=== PATIENT | female | born 1930 | race Caucasian/White ===

== ENCOUNTER 2017-11-08 10:18 | Emergency (ER) | payer OTHER, BC ==
--- NOTE | 2017-11-08 10:31 | PDOC ---
History of Present Illness - General History Source: Patient Exam Limitations: No Limitations - History of Present Illness Initial Comments: 11/08/17 11:53 The patient is a 87 year old female, with a significant past medical history of anemia and hypercholesterolemia , who presents to the emergency department with swelling to her lips and right eye since this morning. The patient reports having intermittent right upper jaw pain for about 3 days. She reports yesterday going to her dentist, having a negative work up with negative x-rays. This morning she reports waking up with a small [place] of blood on her pillow, which she believes came from her mouth. She notes recently starting a new sleeping pill, belsomra, 5-6 days prior to the swelling in her mouth/eye. She denies recent fevers, chills, rash, headache or dizziness. She denies recent nausea, vomit, diarrhea or constipation. She denies recent dysuria, frequency, urgency or hematuria. She denies recent chest pain or shortness of breath. No other new exposures or medications. Allergies: NKA Past surgical history: None reported. Social history: Nonsmoker. Denies EtOH use and recreational drug use. <Darrius Shepherd - Last Filed: 11/08/17 11:53> <Jhony Peña - Last Filed: 11/08/17 15:52> - General Chief Complaint: Allergic Reaction Stated Complaint: FACE/EYE INJURY Time Seen by Provider: 11/08/17 10:31 Past History <Darrius Shepherd - Last Filed: 11/08/17 11:53> - Past Medical History Anemia: Yes COPD: No Hypercholesterolemia: Yes Other medical history: parkinsons,monoclonal gammopathy of unknown significance - Suicide/Smoking/Psychosocial Hx Smoking History: Never smoked <Jhony Peña - Last Filed: 11/08/17 15:52> - Past Medical History Allergies/Adverse Reactions: Allergies Allergy/AdvReac Type Severity Reaction Status Date / Time No Known Allergies Allergy Verified 11/08/17 10:23 Home Medications: Ambulatory Orders Citracal + D ER Tablet 1 tab PO DAILY 11/08/17 Donepezil HCl [Aricept] 5 mg PO 11/08/17 Escitalopram Oxalate [Lexapro -] 5 mg PO DAILY 11/08/17 Pravastatin Sodium [Pravachol (Nf)] 40 mg PO HS 11/08/17 Rasagiline Mesylate [Azilect] 1 mg PO DAILY 11/08/17 Solifenacin Succinate [Vesicare -] 5 mg PO DAILY 11/08/17 Suvorexant [Belsomra] 15 mg PO 11/08/17 Review of Systems - Review of Systems Able to Perform ROS?: Yes Comments:: 11/08/17 11:53 GENERAL/CONSTITUTIONAL: No fever or chills. No weakness. HEAD, EYES, EARS, NOSE AND THROAT: +swelling lips/R eye.+ right jaw pain. No change in vision. No ear pain or discharge. No sore throat. GASTROINTESTINAL: No nausea, vomiting, diarrhea or constipation. GENITOURINARY: No dysuria, frequency, or change in urination. CARDIOVASCULAR: No chest pain or shortness of breath. RESPIRATORY: No cough, wheezing, or hemoptysis. MUSCULOSKELETAL: No joint or muscle swelling or pain. No neck or back pain. SKIN: No rash NEUROLOGIC: No headache, vertigo, loss of consciousness, or change in strength/ sensation. ENDOCRINE: No increased thirst. No abnormal weight change. HEMATOLOGIC/LYMPHATIC: No anemia, easy bleeding, or history of blood clots. ALLERGIC/IMMUNOLOGIC: No hives or skin allergy. Is the patient limited [place] proficient: Yes <Darrius Shepherd - Last Filed: 11/08/17 11:53> *Physical Exam - Vital Signs Last Vital Signs Temp Pulse Resp BP Pulse Ox 98.1 F 76 18 153/60 99 11/08/17 10:20 11/08/17 10:20 11/08/17 10:20 11/08/17 10:20 11/08/17 10:20 - Physical Exam Comments: 11/08/17 11:54 GENERAL: Awake, alert, and fully oriented, in no acute distress HEAD: No signs of trauma EYES: PERRLA, EOMI, no chemosis or proptosis, sclera anicteric, conjunctiva clear. Right inferior orbital erythema and edema. ENT: Upper lip edema. No evidence of abscess or focal tenderness intraorally. Tongue normal size, uvula midline. nares patent, oropharynx clear without exudates. Moist mucosa NECK: Normal ROM, supple, no lymphadenopathy, JVD, or masses LUNGS: Breath sounds equal, clear to auscultation bilaterally. No wheezes, and no crackles HEART: Regular rate and rhythm, normal S1 and S2, no murmurs, rubs or gallops ABDOMEN: Soft, nontender, normoactive bowel sounds. No guarding, no rebound. No masses EXTREMITIES: Normal range of motion, no edema. No clubbing or cyanosis. No cords , erythema, or tenderness BACK: No midline spinal tenderness in cervical/thoracic/lumbar region NEUROLOGICAL: Normal speech, cranial nerves intact, normal tone <Darrius Shepherd - Last Filed: 11/08/17 11:53> - Vital Signs Last Vital Signs Temp Pulse Resp BP Pulse Ox 98.1 F 76 18 153/60 99 11/08/17 10:20 11/08/17 10:20 11/08/17 10:20 11/08/17 10:20 11/08/17 10:20 <Jhony Peña - Last Filed: 11/08/17 15:52> ED Treatment Course - LABORATORY CBC & Chemistry Diagram: 11/08/17 11:20 11/08/17 11:20 - ADDITIONAL ORDERS Additional order review: 11/08/17 11:20 RBC 3.87 MCV 86.7 MCHC 31.5 L RDW 15.8 H MPV 10.1 D Neutrophils % 73.2 D Lymphocytes % 15.7 D Monocytes % 9.1 Eosinophils % 1.2 Basophils % 0.8 - Medications Given in the ED: ED Medications Discontinued Medications Generic Name Dose Route Start Last Admin Trade Name Juanq PRN Reason Stop Dose Admin Diphenhydramine HCl 25 mg 11/08/17 11:03 11/08/17 11:49 Benadryl Injection - IVPUSH 11/08/17 11:04 25 mg ONCE ONE Administration Famotidine/Sodium Chloride 20 mg in 50 mls @ 100 mls/hr 11/08/17 11:04 11:49 Pepcid 20 Mg Premixed Ivpb - IVPB 11/08/17 11:33 100 mls/hr ONCE ONE Administration Methylprednisolone Sodium Succinate 125 mg 11/08/17 11:03 11/08/17 11:49 Solu-Medrol - IVPUSH 11/08/17 11:04 125 mg ONCE ONE Administration <Darrius Shepherd - Last Filed: 11/08/17 11:53> - LABORATORY CBC & Chemistry Diagram: 11/08/17 11:20 11/08/17 11:20 <Jhony Peña - Last Filed: 11/08/17 15:52> Medical Decision Making - Medical Decision Making 11/08/17 11:09 87-year-old female presents emergency Department with upper lip swelling and inferior orbital swelling on the right. Vitals unremarkable. Patient started a new sleeping medication Balsamra 5 days ago. Differential includes but not limited to ALLERGIC reaction versus collection although unlikely this patient has no fevers and no evidence of abscess or collection on exam versus preseptal cellulitis. We'll obtain labs and facial CT scan. We'll also treat as an ALLERGY with Benadryl, steroids, and Pepcid and reassess. 11/08/17 15:[address] scan of the face with only edema of the face but no collections. After steroids, Benadryl and Pepcid there is significant improvement in the swelling consistent with possible ALLERGIC reaction to Balsomra. Patient feels much better. Advised to stop taking bowel balsomra and also explained that I will prescribe her an EpiPen should she have severe ALLERGIC symptoms such as shortness of breath and vomiting and throat closing. Patient/daughter express understanding. I discussed the physical exam findings, ancillary test results and final diagnoses with the patient. I answered all of the patient's questions. The patient was satisfied with the care received and felt comfortable with the discharge plan and treatment plan. The patient will call their primary care physician within 24 hours to arrange follow-up and will return to the Emergency Department with any new, persistent or worsening symptoms. <Jhony Peña - Last Filed: 11/08/17 15:52> *DC/Admit/Observation/Transfer - Attestations Scribe Attestion: 11/08/17 11:54 Documentation prepared by Darrius Shepherd, acting as medical device for Jhony Peña MD, /DO. <Darrius Shepherd - Last Filed: 11/08/17 11:53> - Discharge Dispostion Admit: No - Attestations Physician Attestion: 11/08/17 15:52 I, Dr. Jhony Peña MD, attest that this document has been prepared under my direction and personally reviewed by me in its entirety. I further attest, that it accurately reflects all work, treatment, procedures and medical decision -making performed by me. <Jhony Peña - Last Filed: 11/08/17 15:52> Diagnosis at time of Disposition: Allergic reaction - Discharge Dispostion Disposition: HOME Condition at time of disposition: Stable - Referrals Referrals: Stevo Mitchell MD [Primary Care Provider] - - Patient Instructions Printed Discharge Instructions: DI for Adverse Drug Reaction -- Allergic Additional Instructions: Do not take Belsomra as you may be allergic to it. Take the steroids (prednisone ) as prescribed. Use Benadryl as needed for mild ALLERGIC symptoms. Please fill the prescription for the EpiPen and use as we discussed if you have severe ALLERGIC symptoms. Follow-up with your primary doctor within 1-2 days. Return to emergency department if you have any new, worsening or concerning symptoms.
[2017-11-08] MEDS ORDERED: methylPREDNISolone NA SUCC 125 MG/2 ML VIAL IVPUSH ONE (11:03)
[2017-11-08] MEDS ORDERED: FAMOTIDINE 20 MG/50 ML IVPB 20 MG/50 ML MG IVPB ONE ×2 (11:04→11:40)
[2017-11-08 11:36] LABS: BASO % 0.8 % (0-2.0); EOS % 1.2 % (0-4.5); HEMATOCRIT 33.5 % (32.4-45.2); HEMOGLOBIN 10.6 GM/dL (10.7-15.3); LYMPH % 15.7 % (8-40); MCH 27.3 pg (25.7-33.7); MCHC 31.5 g/dl (32.0-36.0); MEAN CELL VOLUME 86.7 fl (80-96); MEAN PLT VOLUME 10.1 fl (7.5-11.1); MONO % 9.1 % (3.8-10.2); NEUT % 73.2 % (42.8-82.8); PLATELET COUNT 139 K/MM3 (134-434); RBC 3.87 M/mm3 (3.60-5.2); RDW 15.8 % (11.6-15.6); WHITE BLOOD COUNT 8.1 K/mm3 (4.0-10.0)
[2017-11-08] MEDS ORDERED: methylPREDNISolone NA SUCC 125 MG/2 ML VIAL ONE (11:40)
[2017-11-08 12:05] LABS: ALBUMIN 3.6 g/dl (3.4-5.0); ALK PHOS 72 U/L (45-117); ANION GAP 11 (8-16); BILIRUBIN,TOTAL 0.5 mg/dL (0.2-1.0); BLOOD UREA NITROGEN 24 mg/dL (7-18); CALCIUM 9.6 mg/dL (8.5-10.1); CHLORIDE 105 mmol/L (98-107); CO2 26 mmol/L (21-32); CREATININE 1.2 mg/dL (0.55-1.02); GLUCOSE,RANDOM 101 mg/dL (74-106); SGPT/ALT 13 U/L (12-78); SODIUM 142 mmol/L (136-145); TOT PROT 6.9 g/dl (6.4-8.2)
[2017-11-08 12:07] LABS: POTASSIUM 4.4 mmol/L (3.5-5.1); SGOT/AST 26 U/L (15-37)
[2017-11-08 14:10] VITALS: BP 150/69; PULSE 69; TEMP 98.5
== END 2017-11-08 16:00 | disposition home or self-care (01) ==
LOC: JER 10:18
DX: T78.3XXA Angioneurotic edema, initial encounter (principal); T45.0X5A Adverse effect of antiallergic and antiemetic drugs, initial encounter; Y92.018 Other place in single-family (private) house as the place of occurrence of the external cause; E78.00 Pure hypercholesterolemia, unspecified; D64.9 Anemia, unspecified
CPT/HCPCS: 36415; 70486-TC; 80053; 85025; 99281-25

== ENCOUNTER 2018-04-13 05:50 | Inpatient (IN) | payer OTHER, BC ==
--- NOTE | 2018-04-13 06:07 | PDOC ---
History of Present Illness - General Stated Complaint: FALL Time Seen by Provider: 04/13/18 05:54 - History of Present Illness Initial Comments: 04/13/18 06:10 87 yo F with h/o anemia, MGUS, Parkinson's dz., dementia who p/w R hip pain s/p mechanical fall. Patient found down by daughter (who lives upstairs), after pt. called them on cell phone this AM at approximately 05:00 AM. Patient reports that she was ambulating to bathroom at 1100 PM yesterday evening and fell onto her right knee, injuring her right knee and right hip. Reports losing footing and falling from standing height. Reports taking Diphehydramine yesterday at 1000AM to assist in falling asleep. She does not recall LOC, head/neck/back trauma. Does not recall how long she was on ground. Patient denies MITCHELL, cough, orthopnea, PND, palpitations, N/V, F,C, CP, SOB, urinary complaints, abdominal pain, diarrhea, constipation, lightheadedness, weakness, sensory changes. PMHx: as noted above ROS: as noted SHx: Denies tobacco, Etoh, IVDA. Allergies: NKDA Past History - Past Medical History Allergies/Adverse Reactions: Allergies Allergy/AdvReac Type Severity Reaction Status Date / Time No Known Allergies Allergy Verified 04/13/18 06:21 Home Medications: Ambulatory Orders Citracal + D ER Tablet 1 tab PO DAILY 11/08/17 Donepezil HCl [Aricept] 5 mg PO 11/08/17 EPINEPHrine (EPI-PEN 0.3MG) [Epipen 0.3MG -] 0.3 mg IM ASDIR #2 pens 11/08/17 Escitalopram Oxalate [Lexapro -] 5 mg PO DAILY 11/08/17 Pravastatin Sodium [Pravachol (Nf)] 40 mg PO HS 11/08/17 Prednisone [Prednisone 50 MG TABLETS] 50 mg PO DAILY #4 tablet 11/08/17 Rasagiline Mesylate [Azilect] 1 mg PO DAILY 11/08/17 Solifenacin Succinate [Vesicare -] 5 mg PO DAILY 11/08/17 Suvorexant [Belsomra] 15 mg PO 11/08/17 Anemia: Yes COPD: No Hypercholesterolemia: Yes - Suicide/Smoking/Psychosocial Hx Smoking History: Never smoked Review of Systems - Review of Systems Comments:: 04/13/18 06:22 GENERAL/CONSTITUTIONAL: No fever or chills. No weakness. HEAD, EYES, EARS, NOSE AND THROAT: No change in vision. No ear pain or discharge. No sore throat. CARDIOVASCULAR: No chest pain or shortness of breath RESPIRATORY: No cough, wheezing, or hemoptysis. GASTROINTESTINAL: No nausea, vomiting, diarrhea or constipation. GENITOURINARY: No dysuria, frequency, or change in urination. MUSCULOSKELETAL:+ Right hip and R knee pain. No joint or muscle swelling or pain. No neck or back pain. SKIN: No rash NEUROLOGIC: No headache, vertigo, loss of consciousness, or change in strength/ sensation. ENDOCRINE: No increased thirst. No abnormal weight change HEMATOLOGIC/LYMPHATIC: No anemia, easy bleeding, or history of blood clots. ALLERGIC/IMMUNOLOGIC: No hives or skin allergy. *Physical Exam - Physical Exam Comments: 04/13/18 06:23 GENERAL: Awake, alert, and fully oriented, in no acute distress HEAD: No signs of trauma, normocephalic, atraumatic EYES: PERRLA, EOMI, sclera anicteric, conjunctiva clear ENT: Auricles normal inspection, hearing grossly normal, nares patent, oropharynx clear without exudates. Moist mucosa NECK: Normal ROM, supple, no lymphadenopathy, JVD, or masses LUNGS: No distress, speaks full sentences, clear to auscultation bilaterally HEART: Regular rate and rhythm, normal S1 and S2, no murmurs, rubs or gallops, peripheral pulses normal and equal bilaterally. ABDOMEN: Soft, nontender, normoactive bowel sounds. No guarding, no rebound. No masses EXTREMITIES : Normal inspection, Normal range of motion, no edema. No clubbing or cyanosis. HIP: R hip ttp at greater trochanter. Absent ecchymosis. Intact peripheral pulses. R KNEE: Ecchymosis at R sided lateral knee. Absent prepatellar ttp. Absent varus /valgus deformity. Normal ROM. SKIN: Warm, Dry, normal turgor, no rashes or lesions noted ED Treatment Course - RADIOLOGY Radiology Studies Ordered: Category Date Time Status HEAD CT WITHOUT CONTRAST [CT] Stat CT Scan 04/13/18 06:04 Ordered HIP & PELVIS-RIGHT [RAD] Stat Radiology 04/13/18 06:04 Ordered KNEE 3 POS-RIGHT [RAD] Stat Radiology 04/13/18 06:04 Ordered Medical Decision Making - Medical Decision Making 04/13/18 06:20 87 yo F with h/o anemia, MGUS, Parkinson's dz., dementia who p/w R hip pain s/p mechanical fall. VSS, AF, A&OX3. R greater trochanter ttp. R HIP RAD to r/o fracture/dislocation. Nexus C Spine Neg. ED Course: CBC, CMP, Pt/INR, UA CTH, R HIP RAD, R KNEE RAD APAP 04/13/18 06:58 EKG: NSR with absent CHRISTIANO, STD, or TWI. Normal axis and interval duration. *DC/Admit/Observation/Transfer Diagnosis at time of Disposition: Fall Qualifiers: Encounter type: initial encounter Qualified Code(s): W19.XXXA - Unspecified fall, initial encounter Fall from standing Qualifiers: Encounter type: initial encounter Qualified Code(s): W19.XXXA - Unspecified fall, initial encounter - Referrals Referrals: Stevo Mitchell MD [Primary Care Provider] - - Patient Instructions Printed Discharge Instructions: How to Prevent Falls Additional Instructions: Please return to the emergency department with any new or worsening symptoms or concerns. Please follow up with your primary medical doctor within 72 hours. - Post Discharge Activity - Attestations Physician Attestion: 04/13/18 07:00 I attest to the information provided in this note.
--- NOTE | 2018-04-13 06:08 | PDOC ---
Attending Attestation - HPI HPI: 04/13/18 06:34 The patient is a 87 year old female, with a significant past medical history of short term memory loss, Parkinsons, anemia, MGUS, and hypercholesterolemia, who presents to the emergency department s/p fall with right hip pain. As per patient, she took Benadryl last night and went to the bathroom around 11:00 PM where she fell hurting her right knee and hip. She crawled closed to her bed. The patient called her daughter who lives with her who found her on the floor an hour prior to her arrival (5:00 AM). The patient is unaware if she hit her head or loss consciousness. She is unaware how long she was on the floor. She denies recent fevers, chills, headache or dizziness. She denies recent nausea, vomit, diarrhea or constipation. She denies recent dysuria, frequency, urgency or hematuria. She denies recent chest pain or shortness of breath. Allergies: NKA Social history: Nonsmoker. Denies EtOH use and recreational drug use. Primary Care Physician: Dr. Stevo Mitchell <Alex Hollingsworth - Last Filed: 04/13/18 06:34> - Resident Resident Name: Adan Huerta - ED Attending Attestation I have performed the following: I have examined & evaluated the patient, The case was reviewed & discussed with the resident, I agree w/resident's findings & plan, Exceptions are as noted - Physicial Exam PE: 04/16/18 19:41 *Physical Exam General Appearance: Yes: Appropriately Dressed. No: Apparent Distress, Intoxicated HEENT: positive: EOMI, LUCAS, Normal ENT Inspection, Normal Voice, TMs Normal, Pharynx Normal. negative: Pale Conjunctivae, Photophobia, Scleral Icterus (R), Scleral Icterus (L) Neck: positive: Trachea midline, Normal Thyroid, Supple. negative: Tender, Rigid, Carotid bruit, Stridor, Lymphadenopathy (R), Lymphadenopathy (L), Thyromegaly Respiratory/Chest: positive: Lungs Clear, Normal Breath Sounds. negative: Chest Tender, Respiratory Distress, Accessory Muscle Use, Labored Respiration, RES, Crackles, Rales, Rhonchi, Stridor, Wheezing, Dullness Cardiovascular: positive: Regular Rhythm, Regular Rate, S1, S2. negative: Edema , JVD, Murmur, Bradycardia, Tachycardia Vascular Pulses: Dorsalis-Pedis (R): 2+, Doralis-Pedis (L): 2+ Gastrointestinal/Abdominal: positive: Normal Bowel Sounds, Flat, Soft. negative : Tender, Organomegaly, Pulsatile Mass, Increased Bowel Sounds, Decreased BS, Distended, Guarding, Rebound, Hernia, Hepatomegaly, Spleenomegaly Lymphatic: negative: Adenopathy, Tenderness Musculoskeletal: positive: Normal Inspection. negative: CVA Tenderness, Decreased Range of Motion Extremity: positive: Normal Capillary Refill, Normal Inspection, Normal Range of Motion, Pelvis Stable. negative: Tender, Pedal Edema, Swelling, Erythema Integumentary: positive: Normal Color, Dry, Warm. negative: Cyanotic, Erythema , Jaundice, Rash Neurologic: positive: silvering applicator II-XII NML intact, Fully Oriented, Alert, Normal Mood/ Affect, Motor Strength 5/5. negative: EOM Palsy, Facial Droop, Sensory Deficit - Medical Decision Making 04/16/18 19:41 patient was admitted for further evaluation and care <Jovon Matthews - Last Filed: 04/16/18 19:42> Attestations - Attestations 04/13/18 06:34 Documentation prepared by Alex Hollingsworth, acting as medical scientist for Jovon Matthews DO. <Alex Hollingsworth - Last Filed: 04/13/18 06:34>
[2018-04-13] MEDS ORDERED: ACETAMINOPHEN 325 MG TABLET (FP) PO ONE (06:20)
[2018-04-13] MEDS ORDERED: ACETAMINOPHEN 325 MG TABLET (FP) ONE (06:54)
[2018-04-13 07:20] LABS: BASO % 0.4 % (0-2.0); EOS % 0.2 % (0-4.5); HEMATOCRIT 33.1 % (32.4-45.2); LYMPH % 9.1 % (8-40); MCH 28.5 pg (25.7-33.7); MCHC 33.1 g/dl (32.0-36.0); MEAN CELL VOLUME 85.9 fl (80-96); MEAN PLT VOLUME 9.4 fl (7.5-11.1); MONO % 7.8 % (3.8-10.2); NEUT % 82.5 % (42.8-82.8); PLATELET COUNT 96 K/MM3 (134-434); RBC 3.85 M/mm3 (3.60-5.2); WHITE BLOOD COUNT 9.6 K/mm3 (4.0-10.0)
[2018-04-13 07:27] LABS: INR 0.98 (0.82-1.09); PROTHROMBIN TIME (PATIENT) 11.1 SEC (9.7-13.0)
--- NOTE | 2018-04-13 07:35 | PDOC ---
*Physical Exam - Vital Signs Last Vital Signs Temp Pulse Resp BP Pulse Ox 98.8 F 76 18 146/75 96 04/13/18 06:21 04/13/18 06:21 04/13/18 06:21 04/13/18 06:21 04/13/18 06:21 - Physical Exam Comments: GENERAL: Awake, alert, and fully oriented, in no acute distress HEAD: No signs of trauma, normocephalic, atraumatic EYES: PERRLA, EOMI, sclera anicteric, conjunctiva clear ENT: Auricles normal inspection, hearing grossly normal, nares patent, oropharynx clear without exudates. Moist mucosa NECK: Normal ROM, supple, no lymphadenopathy LUNGS: No distress, speaks full sentences, clear to auscultation bilaterally HEART: Regular rate and rhythm, normal S1 and S2, no murmurs, rubs or gallops, peripheral pulses normal and equal bilaterally ABDOMEN: Soft, nontender, normoactive bowel sounds. No guarding, no rebound. No masses EXTREMITIES : TTP over right hip/lateral thigh and right knee. No abrasion present. Normal range of motion, no edema. No clubbing or cyanosis. NEUROLOGICAL: Cranial nerves II through XII grossly intact. Normal speech, normal gait, no focal sensorimotor deficits SKIN: Warm, Dry, normal turgor, no rashes or lesions noted 04/13/18 07:32 ED Treatment Course - LABORATORY CBC & Chemistry Diagram: 04/13/18 06:59 04/13/18 06:59 - ADDITIONAL ORDERS Additional order review: Laboratory Results 04/13/18 06:59 PT with INR 11.10 INR 0.98 - Medications Given in the ED: ED Medications Discontinued Medications Generic Name Dose Route Start Last Admin Trade Name Manpreet PRN Reason Stop Dose Admin Acetaminophen 650 mg 04/13/18 06:20 04/13/18 07:11 Tylenol - PO 04/13/18 06:21 650 mg ONCE ONE Administration Medical Decision Making - Medical Decision Making I have assumed care of the patient from Dr. Huerta, who has discussed the clinical presentation, work-up, and ED course thus far. I have reviewed the patients medical record and ED course and agree with all aspects of care thus far. The patient's feels well, her pain is well controlled, and her labs and plain films are still pending. 04/13/18 07:31 Patient without leukocytosis. Cr 1.0. BUN 23. Patient without signs of rhabdomyolysis 04/13/18 07:59 CT Head with moderate diffuse cerebral atrophy; however, no evidence of acute intracranial hemorrhage or pathology 04/13/18 08:37 Plain films of R femur and hip without fracture. Patient continues to report pain in her right hip that inhibits her from ambulating independently. Will give Ibuprofen 600mg PO once. Plan to ambulate patient to assess mobility. Patient lives independently. Her daughter and son-in-law live in the same house above the patient and are readily available to help. However, the patient reports urinary frequency and needs to be able to ambulate frequently to void. At baseline she reports ambulating without a cane at home and with a cane when outside of her home. 04/13/18 09:19 Attempted to ambulate the patient, however she was unable to bear weight even with assistance and was unable to do more than stand for a short time. Given that she may have an occult fracture not observed on plain films and that she lives alone, plan to admit for observation and evaluation for occult fracture 04/13/18 09:39 Dispo: Admit for observation under Dr. Reynoso with an orthopedic consult. 04/13/18 09:47 *DC/Admit/Observation/Transfer Diagnosis at time of Disposition: Fall Qualifiers: Encounter type: initial encounter Qualified Code(s): W19.XXXA - Unspecified fall, initial encounter Fall from standing Qualifiers: Encounter type: initial encounter Qualified Code(s): W19.XXXA - Unspecified fall, initial encounter - Discharge Dispostion Condition at time of disposition: Guarded Decision to Admit order: Yes - Referrals Referrals: Stevo Mitchell MD [Primary Care Provider] - - Patient Instructions Printed Discharge Instructions: How to Prevent Falls Additional Instructions: Please return to the emergency department with any new or worsening symptoms or concerns. Please follow up with your primary medical doctor within 72 hours. - Post Discharge Activity
[2018-04-13 07:41] LABS: ALBUMIN 3.9 g/dl (3.4-5.0); ALK PHOS 74 U/L (45-117); ANION GAP 8 (8-16); BILIRUBIN,TOTAL 0.5 mg/dL (0.2-1.0); BLOOD UREA NITROGEN 23 mg/dL (7-18); CALCIUM 9.4 mg/dL (8.5-10.1); CHLORIDE 106 mmol/L (98-107); CO2 30 mmol/L (21-32); GLUCOSE,RANDOM 107 mg/dL (74-106); POTASSIUM 4.1 mmol/L (3.5-5.1); SGOT/AST 24 U/L (15-37); SGPT/ALT 24 U/L (12-78); SODIUM 144 mmol/L (136-145); TOT PROT 6.6 g/dl (6.4-8.2)
[2018-04-13 08:10] LABS: URINE APPEARANCE CLEAR; URINE BILIRUBIN NEGATIVE (<2.0 mg/dL); URINE COLOR LTYELLOW; URINE GLUCOSE (UA) NEGATIVE (NEGATIVE); URINE KETONE NEGATIVE (NEGATIVE); URINE LEUK ESTERASE NEGATIVE (NEGATIVE); URINE NITRITE NEGATIVE (NEGATIVE); URINE PROTEIN NEGATIVE (NEGATIVE); URINE UROBILINOGEN NEGATIVE mg/dL (0.2-1.0)
[2018-04-13] MEDS ORDERED: IBUPROFEN 600 MG TABLET (FP) PO ONE ×2 (09:14→09:39)
--- NOTE | 2018-04-13 11:34 | EKG ---
Test Reason : Blood Pressure : / mmHG Vent. Rate : 071 BPM Atrial Rate : 071 BPM P-R Int : 162 ms QRS Dur : 086 ms QT Int : 446 ms P-R-T Axes : 063 074 074 degrees QTc Int : 484 ms NORMAL SINUS RHYTHM NORMAL ECG NO PREVIOUS ECGS AVAILABLE Confirmed by REMIGIO ADAMSON MD ([id number]) on 04/13/2018 11:33:44 AM Referred By: Confirmed By:REMIGIO ADAMSON MD
[2018-04-13 12:07] VITALS: BMI 19.7
[2018-04-13] MEDS ORDERED: oxyCODONE HCL 5 MG TABLET PO PRN (12:26)
--- NOTE | 2018-04-13 12:34 | HP ---
Admitting History and Physical - Primary Care Physician PCP: Stevo Mitchell - Admission Chief Complaint: fall History of Present Illness: is a pleasant 87 year old female who came in s/p fall at home. She reports she got up to go to bathroom yesterday night around 11, lights were off, she tripped and fell forward. She denies LOC/head trauma or any prodromal symptoms. She reports she called her daughter around 5am and was brought into hospital. She took benadryl last night to help her sleep. She currently reports feeling well, increased pain with movement. Denies any chest pain, sob, dizziness, lightheadedness, n/v/d, dysuria, numbess/tingling or weakness. History Source: Patient, Family Member Limitations to Obtaining History: No Limitations - Past Medical History SIGN DESIGNER: Yes: Dementia, Parkinson's Cardiovascular: Yes: Hyperlipdemia ...: No Heme/Onc: Yes: Other (MGUS) Psych: Yes: Depression - Past Surgical History Past Surgical History: Yes: None - Advance Directives Advance Directives: Yes: Health Care Proxy - Smoking History Smoking history: Never smoked Have you smoked in the past 12 months: No - Alcohol/Substance Use Hx Alcohol Use: No History of Substance Use: reports: None - Social History Usual Living Arrangement: Yes: With Child ADL: Independent History of Recent Travel: No Home Medications - Allergies Allergies/Adverse Reactions: Allergies Allergy/AdvReac Type Severity Reaction Status Date / Time No Known Allergies Allergy Verified 04/13/18 06:21 - Home Medications Home Medications: Ambulatory Orders Citracal + D ER Tablet 1 tab PO DAILY 11/08/17 Donepezil HCl [Aricept] 5 mg PO DAILY 11/08/17 Escitalopram Oxalate [Lexapro -] 10 mg PO DAILY 11/08/17 Pravastatin Sodium [Pravachol (Nf)] 40 mg PO HS 11/08/17 Rasagiline Mesylate [Azilect] 1 mg PO DAILY 11/08/17 Solifenacin Succinate [Vesicare -] 5 mg PO DAILY 11/08/17 Diphenhydramine HCl [Benadryl Capsule -] 25 mg PO HS MDD 1 04/13/18 Melatonin 1 mg PO HS 04/13/18 Multivitamin [One Daily] 1 tab PO DAILY 04/13/18 Family Disease History - Family Disease History Family Disease History: Diabetes: Father, CA: Sister (Breast CA) Review of Systems Findings/Remarks: as per hpi Physical Examination Vital Signs: Vital Signs Temperature 98.6 F 04/13/18 12:25 Pulse Rate 70 04/13/18 12:25 Respiratory Rate 20 04/13/18 12:25 Blood Pressure 146/73 04/13/18 12:25 O2 Sat by Pulse Oximetry (%) 95 04/13/18 09:53 Constitutional: Yes: Well Nourished, No Distress, Calm HENT: Yes: WNL, Atraumatic Cardiovascular: Yes: WNL, Regular Rate and Rhythm. No: Gallop, Murmur Respiratory: Yes: WNL, Regular, CTA Bilaterally. No: Accessory Muscle Use, Rhonchi, SOB, Tachypnea, Wheezes Gastrointestinal: Yes: WNL, Normal Bowel Sounds, Soft. No: Distention, Tenderness Renal/: Yes: WNL Extremities: Yes: WNL Edema: Yes Edema: LLE: Trace, RLE: Trace Integumentary: Yes: WNL Neurological: Yes: WNL, Alert, Oriented Psychiatric: Yes: WNL, Alert, Oriented Labs: CBC, BMP 04/13/18 06:59 04/13/18 06:59 Imaging - Results Chest X-ray: Report Reviewed Cat Scan: Report Reviewed (acute fx of anterior inferior portion of right sacral ala, pubis ramus) Problem List - Problems (1) Sacral fracture, closed Assessment/Plan: CT- acute fx of anterior inferior portion of right sacral ala, pubis ramus s/p mechanical fall at home adequate pain control- tylenol/ roxicodone bowel regimen- colace/ senna PT ordered pending ortho consult SW informed of possible SNF placement Code(s): S32.10XA - UNSP FRACTURE OF SACRUM, INIT ENCNTR FOR CLOSED FRACTURE Qualifiers: Encounter type: initial encounter Fracture alignment: nondisplaced (2) Fall Assessment/Plan: as above no loc/head trauma fall risk precautions Code(s): W19.XXXA - UNSPECIFIED FALL, INITIAL ENCOUNTER Qualifiers: Encounter type: initial encounter Qualified Code(s): W19.XXXA - Unspecified fall, initial encounter (3) Hyperlipidemia Assessment/Plan: stable continue statin heart healthy diet Code(s): E78.5 - HYPERLIPIDEMIA, UNSPECIFIED (4) Parkinson disease Assessment/Plan: chronic continue azilect Code(s): G20 - PARKINSON'S DISEASE (5) Dementia Assessment/Plan: mild, stable continue aricept Code(s): F03.90 - UNSPECIFIED DEMENTIA WITHOUT BEHAVIORAL DISTURBANCE Qualifiers: Dementia type: Parkinson's disease Dementia behavioral disturbance: without behavioral disturbance Qualified Code(s): G20 - Parkinson's disease; F02.80 - Dementia in other diseases classified elsewhere without behavioral disturbance (6) MGUS (monoclonal gammopathy of unknown significance) Assessment/Plan: chronic monitored by hematology outpt Code(s): D47.2 - MONOCLONAL GAMMOPATHY Assessment/Plan Dispo: pt will need SNF, SW informed.
[2018-04-13] MEDS: ACETAMINOPHEN 325 MG TABLET (FP) PO SCH ×3 (13:39→23:48)
[2018-04-13] MEDS: DOCUSATE SODIUM 100 MG CAPSULE (FP) PO SCH ×2 (13:39→21:38)
[2018-04-13] MEDS: MULTIVITAMINS (DAILY MVI) TABLET (FP) PO SCH (15:44)
[2018-04-13] MEDS: SOLIFENACIN SUCCINATE 5 MG TAB (FP) PO SCH (15:44)
[2018-04-13] MEDS: ESCITALOPRAM OXALATE 10 MG TABLET (FP) PO SCH (15:44)
--- NOTE | 2018-04-13 16:12 | CON.ORTH ---
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, Parkinson's Cardio/Vascular: Yes: Hyperlipdemia ...: No Psych: Yes: Depression - Past Surgical History Past Surgical History: Yes: None - Alcohol/Substance Use Hx Alcohol Use: No History of Substance Use: reports: None - Smoking History Smoking history: Never smoked Have you smoked in the past 12 months: No - Social History ADL: Independent History of Recent Travel: No Home Medications - Allergies Allergies/Adverse Reactions: Allergies Allergy/AdvReac Type Severity Reaction Status Date / Time No Known Allergies Allergy Verified 04/13/18 06:21 - Home Medications Home Medications: Ambulatory Orders Citracal + D ER Tablet 1 tab PO DAILY 11/08/17 Donepezil HCl [Aricept] 5 mg PO DAILY 11/08/17 Escitalopram Oxalate [Lexapro -] 10 mg PO DAILY 11/08/17 Pravastatin Sodium [Pravachol (Nf)] 40 mg PO HS 11/08/17 Rasagiline Mesylate [Azilect] 1 mg PO DAILY 11/08/17 Solifenacin Succinate [Vesicare -] 5 mg PO DAILY 11/08/17 Diphenhydramine HCl [Benadryl Capsule -] 25 mg PO HS MDD 1 04/13/18 Melatonin 1 mg PO HS 04/13/18 Multivitamin [One Daily] 1 tab PO DAILY 04/13/18 Family Disease History - Family Disease History Family Disease History: Diabetes: Father, CA: Sister (Breast CA) Physical Exam for Ortho Vital Signs: Vital Signs Temperature 98.0 F 04/13/18 15:12 Pulse Rate 72 04/13/18 15:12 Respiratory Rate 20 04/13/18 15:12 Blood Pressure 138/62 04/13/18 15:12 O2 Sat by Pulse Oximetry (%) 97 04/13/18 12:26 Labs: CBC, BMP 04/13/18 06:59 04/13/18 06:59 INR, PTT INR 0.98 (0.82-1.09) 04/13/18 06:59 - Lower Extremity Hip: Yes: Right, Pain, Other (+ ttp pubix rami, equal limb lengths, goo rom of hip, nvi) Imaging - Results Cat Scan: Report Reviewed, Image Reviewed Assessment/Plan 87 yo F with h/o anemia, MGUS, Parkinson's dz., dementia who p/w R hip pain s/p mechanical fall. Patient found down by daughter (who lives upstairs), after pt. called them on cell phone this AM at approximately 05:00 AM. Patient reports that she was ambulating to bathroom at 1100 PM yesterday evening and fell onto her right knee, injuring her right knee and right hip. Reports losing footing and falling from standing height. Reports taking Diphehydramine yesterday at 1000AM to assist in falling asleep. She does not recall LOC, head/neck/back trauma. a/p right inf pubic rami fx, right sacral ala fx No surgical intervention needed PT wbat pain control dvt ppx d/w Dr. Cee
[2018-04-13] MEDS: HEPARIN NA (PORCINE) 5,000 UNITS/ML 1ML VIAL SQ SCH (21:38)
[2018-04-13] MEDS: ATORVASTATIN CA 10 MG TABLET (FP) PO SCH (21:38)
[2018-04-13] MEDS: DONEPEZIL HCL 5 MG TABLET (FP) PO SCH (21:38)
[2018-04-13] MEDS: SENNOSIDES 8.6MG TABLET (FP) PO SCH (21:38)
[2018-04-14] MEDS: DOCUSATE SODIUM 100 MG CAPSULE (FP) PO SCH ×3 (05:39→23:06)
[2018-04-14] MEDS: ACETAMINOPHEN 325 MG TABLET (FP) PO SCH ×3 (05:39→17:41)
[2018-04-14 07:45] LABS: BASO % 0.6 % (0-2.0); EOS % 1.6 % (0-4.5); HEMATOCRIT 33.3 % (32.4-45.2); HEMOGLOBIN 11.2 GM/dL (10.7-15.3); LYMPH % 9.9 % (8-40); MCH 28.6 pg (25.7-33.7); MCHC 33.7 g/dl (32.0-36.0); MEAN CELL VOLUME 84.9 fl (80-96); MONO % 6.5 % (3.8-10.2); NEUT % 81.4 % (42.8-82.8); PLATELET COUNT 77 K/MM3 (134-434); RBC 3.93 M/mm3 (3.60-5.2); RDW 14.9 % (11.6-15.6); WHITE BLOOD COUNT 9.4 K/mm3 (4.0-10.0)
[2018-04-14 08:04] LABS: ANION GAP 7 (8-16); BLOOD UREA NITROGEN 20 mg/dL (7-18); CHLORIDE 107 mmol/L (98-107); CO2 25 mmol/L (21-32); CREATININE 0.8 mg/dL (0.55-1.02); GLUCOSE,RANDOM 98 mg/dL (74-106); MAGNESIUM 2.1 mg/dL (1.8-2.4); POTASSIUM 3.7 mmol/L (3.5-5.1); SODIUM 139 mmol/L (136-145)
[2018-04-14] MEDS: HEPARIN NA (PORCINE) 5,000 UNITS/ML 1ML VIAL SQ SCH ×2 (10:30→21:17)
[2018-04-14] MEDS: ESCITALOPRAM OXALATE 10 MG TABLET (FP) PO SCH (10:30)
[2018-04-14] MEDS: MULTIVITAMINS (DAILY MVI) TABLET (FP) PO SCH (10:30)
[2018-04-14] MEDS: SOLIFENACIN SUCCINATE 5 MG TAB (FP) PO SCH (10:30)
[2018-04-14] MEDS: [UNRECOGNIZED DRUG - OTHER] PO SCH (17:38)
[2018-04-14] MEDS: CITRACAL PO SCH (17:38)
[2018-04-14] MEDS: RASAGILINE MESYLATE 1 MG PO SCH ×2 (17:44)
--- NOTE | 2018-04-14 18:02 | PN ---
Progress Note (short form) - Note Progress Note: Pt seen, with right pelvis fractures x 2. Doing fine, pain is tolerable. Did not do P.T. today. Rec SCDs to B/L LE OOB to chair daily P.T. to start LOYD, PWB right LE DC planning
[2018-04-14] MEDS: DONEPEZIL HCL 5 MG TABLET (FP) PO SCH (21:16)
[2018-04-14] MEDS: ATORVASTATIN CA 10 MG TABLET (FP) PO SCH (21:17)
[2018-04-14] MEDS: SENNOSIDES 8.6MG TABLET (FP) PO SCH (21:17)
[2018-04-15] MEDS: ACETAMINOPHEN 325 MG TABLET (FP) PO SCH ×4 (01:06→20:14)
[2018-04-15] MEDS: DOCUSATE SODIUM 100 MG CAPSULE (FP) PO SCH ×3 (05:22→22:35)
[2018-04-15] MEDS: MULTIVITAMINS (DAILY MVI) TABLET (FP) PO SCH (09:36)
[2018-04-15] MEDS: SOLIFENACIN SUCCINATE 5 MG TAB (FP) PO SCH (09:37)
[2018-04-15] MEDS: ESCITALOPRAM OXALATE 10 MG TABLET (FP) PO SCH (09:38)
[2018-04-15] MEDS: HEPARIN NA (PORCINE) 5,000 UNITS/ML 1ML VIAL SQ SCH ×2 (09:40→22:35)
[2018-04-15] MEDS: CITRACAL PO SCH (09:41)
[2018-04-15] MEDS: [UNRECOGNIZED DRUG - OTHER] PO SCH (09:41)
[2018-04-15] MEDS: RASAGILINE MESYLATE 1 MG PO SCH (09:41)
--- NOTE | 2018-04-15 10:45 | PN ---
Progress Note, Physician Chief Complaint: Still c/o Pelvic pain - Current Medication List Current Medications: Active Medications Acetaminophen (Tylenol -) 650 mg PO Q6HPO [facility] Last Admin: 04/15/18 05:22 Dose: 650 mg Atorvastatin Calcium (Lipitor -) 10 mg PO HS [facility] Last Admin: 04/14/18 21:17 Dose: 10 mg Docusate Sodium (Colace -) 100 mg PO TID [facility] Last Admin: 04/15/18 05:22 Dose: 100 mg Donepezil HCl (Aricept -) 5 mg PO [facility] Last Admin: 04/14/18 21:16 Dose: 5 mg Escitalopram Oxalate (Lexapro -) 10 mg PO DAILY [facility] Last Admin: 04/15/18 09:38 Dose: 10 mg Heparin Sodium (Porcine) (Heparin -) 5,000 unit SQ BID [facility] Last Admin: 04/15/18 09:40 Dose: 5,000 unit Multivitamins/Minerals/Vitamin C (Tab-A-Vit -) 1 tab PO DAILY [facility] Last Admin: 04/15/18 09:36 Dose: 1 tab Non-Formulary Medication (Citracal + D Er Tablet) 1 tab PO DAILY [facility] Last Admin: 04/15/18 09:41 Dose: 1 tab Non-Formulary Medication (Rasagiline Mesylate [Azilect]) 1 mg PO DAILY [facility] Last Admin: 04/15/18 09:41 Dose: 1 mg Oxycodone HCl (Roxicodone -) 2.5 mg PO Q6H PRN PRN Reason: PAIN LEVEL 6-10 Senna (Senna -) 2 tab PO [facility] Last Admin: 04/14/18 21:17 Dose: 2 tab Solifenacin (Vesicare -) 5 mg PO DAILY [facility] Last Admin: 04/15/18 09:37 Dose: 5 mg - Objective Vital Signs: Vital Signs Temperature 98.3 F 04/14/18 06:00 Pulse Rate 76 04/14/18 06:00 Respiratory Rate 16 04/14/18 06:00 Blood Pressure 156/71 04/14/18 06:00 O2 Sat by Pulse Oximetry (%) 97 04/13/18 22:00 Constitutional: Yes: Well Nourished, No Distress, Calm HENT: Yes: WNL, Atraumatic Cardiovascular: Yes: WNL, Regular Rate and Rhythm. No: Gallop, Murmur Respiratory: Yes: WNL, Regular, CTA Bilaterally. No: Accessory Muscle Use, Rhonchi, SOB, Tachypnea, Wheezes Gastrointestinal: Yes: WNL, Normal Bowel Sounds, Soft. No: Distention, Tenderness Renal/: Yes: WNL Extremities: Yes: WNL Edema: Yes Edema: LLE: Trace, RLE: Trace Integumentary: Yes: WNL Neurological: Yes: WNL, Alert, Oriented Labs: CBC, BMP 04/14/18 06:00 04/14/18 06:00 INR, PTT INR 0.98 (0.82-1.09) 04/13/18 06:59 Problem List - Problems (1) Fall Assessment/Plan: Due to instabilit , Pt evaluation Code(s): W19.XXXA - UNSPECIFIED FALL, INITIAL ENCOUNTER Qualifiers: Encounter type: initial encounter Qualified Code(s): W19.XXXA - Unspecified fall, initial encounter (2) Sacral fracture, closed Assessment/Plan: conservative management , pain control, evaluted by orthopedics Code(s): S32.10XA - UNSP FRACTURE OF SACRUM, INIT ENCNTR FOR CLOSED FRACTURE Qualifiers: Encounter type: initial encounter Fracture alignment: nondisplaced (3) Hyperlipidemia Assessment/Plan: On statin Code(s): E78.5 - HYPERLIPIDEMIA, UNSPECIFIED (4) MGUS (monoclonal gammopathy of unknown significance) Assessment/Plan: No active issue Code(s): D47.2 - MONOCLONAL GAMMOPATHY (5) Dementia Assessment/Plan: Cont home meds Code(s): F03.90 - UNSPECIFIED DEMENTIA WITHOUT BEHAVIORAL DISTURBANCE Qualifiers: Dementia type: Parkinson's disease Dementia behavioral disturbance: without behavioral disturbance Qualified Code(s): G20 - Parkinson's disease; F02.80 - Dementia in other diseases classified elsewhere without behavioral disturbance
--- NOTE | 2018-04-15 10:45 | PN ---
Progress Note, Physician Chief Complaint: Still c/o Pelvic pain - Current Medication List Current Medications: Active Medications Acetaminophen (Tylenol -) 650 mg PO Q6HPO [facility] Last Admin: 04/15/18 05:22 Dose: 650 mg Atorvastatin Calcium (Lipitor -) 10 mg PO HS [facility] Last Admin: 04/14/18 21:17 Dose: 10 mg Docusate Sodium (Colace -) 100 mg PO TID [facility] Last Admin: 04/15/18 05:22 Dose: 100 mg Donepezil HCl (Aricept -) 5 mg PO [facility] Last Admin: 04/14/18 21:16 Dose: 5 mg Escitalopram Oxalate (Lexapro -) 10 mg PO DAILY [facility] Last Admin: 04/15/18 09:38 Dose: 10 mg Heparin Sodium (Porcine) (Heparin -) 5,000 unit SQ BID [facility] Last Admin: 04/15/18 09:40 Dose: 5,000 unit Multivitamins/Minerals/Vitamin C (Tab-A-Vit -) 1 tab PO DAILY [facility] Last Admin: 04/15/18 09:36 Dose: 1 tab Non-Formulary Medication (Citracal + D Er Tablet) 1 tab PO DAILY [facility] Last Admin: 04/15/18 09:41 Dose: 1 tab Non-Formulary Medication (Rasagiline Mesylate [Azilect]) 1 mg PO DAILY [facility] Last Admin: 04/15/18 09:41 Dose: 1 mg Oxycodone HCl (Roxicodone -) 2.5 mg PO Q6H PRN PRN Reason: PAIN LEVEL 6-10 Senna (Senna -) 2 tab PO [facility] Last Admin: 04/14/18 21:17 Dose: 2 tab Solifenacin (Vesicare -) 5 mg PO DAILY [facility] Last Admin: 04/15/18 09:37 Dose: 5 mg - Objective Vital Signs: Vital Signs Temperature 98.3 F 04/15/18 06:00 Pulse Rate 76 04/15/18 06:00 Respiratory Rate 16 04/15/18 06:00 Blood Pressure 156/71 04/15/18 06:00 O2 Sat by Pulse Oximetry (%) 97 04/13/18 22:00 Constitutional: Yes: Well Nourished, No Distress, Calm HENT: Yes: WNL, Atraumatic Cardiovascular: Yes: WNL, Regular Rate and Rhythm. No: Gallop, Murmur Respiratory: Yes: WNL, Regular, CTA Bilaterally. No: Accessory Muscle Use, Rhonchi, SOB, Tachypnea, Wheezes Gastrointestinal: Yes: WNL, Normal Bowel Sounds, Soft. No: Distention, Tenderness Renal/: Yes: WNL Extremities: Yes: WNL Edema: Yes Edema: LLE: Trace, RLE: Trace Integumentary: Yes: WNL Neurological: Yes: WNL, Alert, Oriented Labs: CBC, BMP 04/14/18 06:00 04/14/18 06:00 INR, PTT INR 0.98 (0.82-1.09) 04/13/18 06:59 Problem List - Problems (1) Fall Assessment/Plan: Due to instabilit , Pt evaluation Code(s): W19.XXXA - UNSPECIFIED FALL, INITIAL ENCOUNTER Qualifiers: Encounter type: initial encounter Qualified Code(s): W19.XXXA - Unspecified fall, initial encounter (2) Sacral fracture, closed Assessment/Plan: conservative management , pain control, evaluted by orthopedics Code(s): S32.10XA - UNSP FRACTURE OF SACRUM, INIT ENCNTR FOR CLOSED FRACTURE Qualifiers: Encounter type: initial encounter Fracture alignment: nondisplaced (3) Hyperlipidemia Assessment/Plan: On statin Code(s): E78.5 - HYPERLIPIDEMIA, UNSPECIFIED (4) MGUS (monoclonal gammopathy of unknown significance) Assessment/Plan: No active issue Code(s): D47.2 - MONOCLONAL GAMMOPATHY (5) Dementia Assessment/Plan: Cont home meds Code(s): F03.90 - UNSPECIFIED DEMENTIA WITHOUT BEHAVIORAL DISTURBANCE Qualifiers: Dementia type: Parkinson's disease Dementia behavioral disturbance: without behavioral disturbance Qualified Code(s): G20 - Parkinson's disease; F02.80 - Dementia in other diseases classified elsewhere without behavioral disturbance
[2018-04-15] MEDS: DONEPEZIL HCL 5 MG TABLET (FP) PO SCH (22:35)
[2018-04-15] MEDS: ATORVASTATIN CA 10 MG TABLET (FP) PO SCH (22:35)
[2018-04-15] MEDS: SENNOSIDES 8.6MG TABLET (FP) PO SCH (22:35)
[2018-04-16] MEDS: ACETAMINOPHEN 325 MG TABLET (FP) PO SCH ×3 (00:24→12:22)
[2018-04-16] MEDS: DOCUSATE SODIUM 100 MG CAPSULE (FP) PO SCH ×3 (05:34→14:15)
--- NOTE | 2018-04-16 09:07 | PN ---
Progress Note (short form) - Note Progress Note: Ortho Pt seen and examined s/p pelvic and sacral fx- improving decr pain, incr rom, nvi a/p PT wbat dvt ppx pain control d/c planning for rehab d/w Dr. Cee
[2018-04-16 09:38] VITALS: PULSE 93
[2018-04-16] MEDS: MULTIVITAMINS (DAILY MVI) TABLET (FP) PO SCH (09:39)
[2018-04-16] MEDS: ESCITALOPRAM OXALATE 10 MG TABLET (FP) PO SCH (09:39)
[2018-04-16] MEDS: CITRACAL PO SCH (09:40)
[2018-04-16] MEDS: [UNRECOGNIZED DRUG - OTHER] PO SCH (09:40)
[2018-04-16] MEDS: RASAGILINE MESYLATE 1 MG PO SCH (09:40)
[2018-04-16] MEDS: SOLIFENACIN SUCCINATE 5 MG TAB (FP) PO SCH (09:40)
[2018-04-16] MEDS: HEPARIN NA (PORCINE) 5,000 UNITS/ML 1ML VIAL SQ SCH (09:41)
--- NOTE | 2018-04-16 10:17 | DS ---
Physical Examination Vital Signs: Vital Signs Temperature 97.8 F 04/16/18 09:37 Pulse Rate 93 H 04/16/18 09:37 Respiratory Rate 18 04/16/18 09:37 Blood Pressure 144/73 04/16/18 09:37 O2 Sat by Pulse Oximetry (%) 96 04/15/18 22:00 Constitutional: Yes: Well Nourished, No Distress, Calm Cardiovascular: Yes: WNL, Regular Rate and Rhythm. No: Gallop, Murmur Respiratory: Yes: WNL, Regular, CTA Bilaterally. No: Tachypnea, Wheezes Gastrointestinal: Yes: WNL, Normal Bowel Sounds, Soft. No: Abdomen, Obese, Distention, Tenderness Renal/: Yes: WNL Extremities: Yes: WNL Edema: No Neurological: Yes: WNL, Alert, Oriented Psychiatric: Yes: WNL, Alert, Oriented Labs: CBC, BMP 04/14/18 06:00 04/14/18 06:00 Discharge Summary Reason For Visit: INABILITY TO AMBULATE DUE TO HIP FALL FROM STANDIN Current Active Problems Dementia (Acute) Depression (Acute) Fall (Acute) Fall from standing (Acute) Hyperlipidemia (Acute) MGUS (monoclonal gammopathy of unknown significance) (Acute) Parkinson disease (Acute) Sacral fracture, closed (Acute) Hospital Course: Admitted s/p mechanical fall, CT- acute fx of anterior inferior portion of right sacral ala, pubis ramus, evaluated by ortho, nonoperative. Pt doing well, ambulated with PT, fall risk. Needs SNF for further rehabilitation. pain well controlled, labs unremarkable. Otherwise, pt is medically stable for discharge to SNF Condition: Fair - Instructions Diet, Activity, Other Instructions: resume diet activity as tolerated f/u as directed Referrals: Stevo Mitchell MD [Primary Care Provider] - 1 Week Disposition: [facility] - Home Medications Comprehensive Discharge Medication List: Ambulatory Orders Citracal + D ER Tablet 1 tab PO DAILY 11/08/17 Donepezil HCl [Aricept] 5 mg PO DAILY 11/08/17 Escitalopram Oxalate [Lexapro -] 10 mg PO DAILY 11/08/17 Pravastatin Sodium [Pravachol (Nf)] 40 mg PO HS 11/08/17 Rasagiline Mesylate [Azilect] 1 mg PO DAILY 11/08/17 Solifenacin Succinate [Vesicare -] 5 mg PO DAILY 11/08/17 Diphenhydramine HCl [Benadryl Capsule -] 25 mg PO HS MDD 1 04/13/18 Melatonin 1 mg PO HS 04/13/18 Multivitamin [One Daily] 1 tab PO DAILY 04/13/18
[2018-04-16 14:35] VITALS: BP 116/59; TEMP 98.5
[2018-04-16] MEDS ORDERED: PT OWN MED DRAWER 7, Y5N ONE (15:47)
== END 2018-04-16 18:13 | DRG 552 ==
LOC: JER 05:50 → JERBED 09:43 → J6S 11:13 → OBSVTOIN 12:45 → UNDODISIN 04-15 14:00
PROVIDERS: ADMIT Internal Medicine; ATTEND Internal Medicine
DX: S32.19XA Other fracture of sacrum, initial encounter for closed fracture (principal); S32.591A Other specified fracture of right pubis, initial encounter for closed fracture; W18.39XA Other fall on same level, initial encounter; Y92.098 Other place in other non-institutional residence as the place of occurrence of the external cause; D47.2 Monoclonal gammopathy; G20 Parkinson's disease; F02.80 Dementia in other diseases classified elsewhere, unspecified severity, without behavioral disturbance, psychotic disturbance, mood disturbance, and anxiety; E78.5 Hyperlipidemia, unspecified; F32.9 Major depressive disorder, single episode, unspecified
CPT/HCPCS: 36415; 70450-TC; 72192-TC; 73523-TC-FY; 73552-TC-RT-FY; 73562-TC-RT-FY; 73700-TC-RT; 80048; 80053; 81003; 83735; 85025; 85610; 87086; 93005; 93010; 97116-GP; 97162-GP; 99284-25; G0378; J1644